=== PATIENT | male | born 1995 | race Caucasian/White ===

== ENCOUNTER 2024-03-06 12:36 | Emergency (ER) | payer SELFPAY ==
[~2024-03-06] VITALS: Ht 170.2 cm; Wt 54.4 kg
[2024-03-06 12:41] VITALS: BP 138/70; PULSE 88; RESP 20; TEMP 98; O2SAT 99
== END 2024-03-06 12:57 ==
LOC: MED 12:36
DX: F10.129 Alcohol abuse with intoxication, unspecified (principal); R03.0 Elevated blood-pressure reading, without diagnosis of hypertension; Y90.9 Presence of alcohol in blood, level not specified
CPT/HCPCS: 99283